=== PATIENT | female | born 1955 | race Caucasian/White ===

== ENCOUNTER → 2017-06-23 | Outpatient (CLI) | payer OTHER ==
[~2017-06-23] MED LIST: ALBU2.5V4 IH; ALPR-557 GT; ASCO1TAB17 PO; ASP325T PO; ASPI325T32 PO; CALC-657 PO; CALC625T PO; CELE200C PO; HYDR1TAB PO; IBUP200T48 PO; LINA290C PO; PNT40TEC PO; PREG300C PO; PRV20T PO; SCR1T1 PO; SERT25TA PO; TRAM50TA2 PO; VITAMINE D3 PO; ZLP10T PO; [UNRECOGNIZED DRUG - CODE] PO
--- NOTE | 2017-06-25 11:57 | Diagnostic Imaging Report ---
EXAM: Bilateral screening mammogram 2D views with tomosynthesis The current study was also evaluated with a Computer Aided Detection (CAD) system. INDICATION: Screening. No current complaints stated on the questionnaire. COMPARISON: 05/01/2016. FINDINGS: The breasts are composed of scattered fibroglandular densities. There are scattered benign-appearing calcifications. Allowing for technique and positional differences, no suspicious change is seen. IMPRESSION: No significant change. ACR BI-RADS Category 2: Benign findings. Result letter will be mailed to the patient. Note: At least 10% of breast cancer is not imaged by mammography. Dictated by: Dictated on workstation # [id number]
== END ==
LOC: RAD 10:00
PROVIDERS: ATTEND Nurse Practitioner Adult Health
DX: Z12.31 Encounter for screening mammogram for malignant neoplasm of breast (principal)
CPT/HCPCS: 77067

== ENCOUNTER → 2019-04-12 | Outpatient (CLI) | payer SELFPAY ==
--- NOTE | 2019-04-12 14:15 | Diagnostic Imaging Report ---
PROCEDURE: US Bilateral lower extremity arterial. TECHNIQUE: Multiple real-time grayscale images are obtained through both lower extremity arterial systems with color Doppler imaging and color Doppler spectral analysis. INDICATION: Raynaud's disease. CORRELATION STUDY: None FINDINGS: The major arteries of both legs are patent to the level of the ankles via the posterior tibial and dorsalis pedis arteries. There is some triphasic waveforms proximally in the common femoral artery, becoming especially biphasic through the remainder of the lower extremities. No significant velocity change or findings suggestive of a focal area of high-degree narrowing and/or stenosis. Visualized soft tissues appear unremarkable. IMPRESSION: 1. There is patency of the bilateral lower extremity arterial systems. No significant velocity change to suggest a focal area of stenosis. Dictated by: Dictated on workstation # [id number]
== END ==
LOC: RAD 12:01
PROVIDERS: ATTEND Nurse Practitioner Community Health
DX: I73.00 Raynaud's syndrome without gangrene (principal)
CPT/HCPCS: 93925

== ENCOUNTER → 2020-07-10 | Outpatient (CLI) | payer OTHER ==
--- NOTE | 2020-07-10 15:10 | Diagnostic Imaging Report ---
INDICATION: Routine screening. COMPARISON: 06/23/2017 and 05/01/2016. TECHNIQUE: 2D and 3D bilateral screening mammography was performed with CAD. FINDINGS: Scattered fibroglandular densities are identified bilaterally. There is a focal density in the lateral left breast on the CC view at posterior depth appearing more prominent than on prior exams. Additional views of this area are recommended. The right breast is unremarkable. There are benign calcifications. No malignant appearing microcalcifications are seen. The axillae are unremarkable. IMPRESSION: Left breast density. Additional views are recommended for further evaluation. ACR BI-RADS Category 0: Incomplete. (Needs additional imaging evaluation). Result letter will be mailed to the patient. Note: At least 10% of breast cancer is not imaged by mammography. Dictated by: Dictated on workstation # [id number]
== END ==
LOC: RAD 12:50
PROVIDERS: ATTEND Nurse Practitioner Family
DX: Z12.31 Encounter for screening mammogram for malignant neoplasm of breast (principal)
CPT/HCPCS: 77063; 77067

== ENCOUNTER → 2020-08-23 | Outpatient (CLI) | payer OTHER ==
--- NOTE | 2020-08-23 11:41 | Diagnostic Imaging Report ---
EXAM: Ultrasound, left breast, limited. INDICATION: Abnormal mammogram The screening mammogram performed on 07/10/2020 noted a small asymmetry in the lateral aspect of the left breast. The diagnostic mammogram performed prior to this study failed to show any sign of malignancy in this area. On this exam, there is no discrete solid or cystic mass identified in the lateral aspect of the left breast which would correspond to the finding of the mammogram. I suspect the mammographic finding was related to fibroglandular tissue alone. Even so, I would recommend that a short-term (6 month) follow-up mammogram of the left breast be obtained for continued evaluation. IMPRESSION: There is no evidence for malignancy. Recommendations as above. ACR BI-RADS Category 3: Probably benign findings. Result letter will be mailed to the patient. Note: At least 10% of breast cancer is not imaged by mammography. Dictated by: Dictated on workstation # [id number]
--- NOTE | 2020-08-23 17:09 | Diagnostic Imaging Report ---
Diagnostic left mammogram. Indication: Abnormal screening mammogram The screening mammogram performed on 07/10/2020 noted a focal asymmetry in the lateral aspect left breast at posterior depth. This is only seen on the craniocaudad view. The compression view of this area shows that the question is less conspicuous. This finding is not as striking on the rolled views and cannot be identified on the MLO view. I suspect this asymmetry is related to fibroglandular tissue. Even so, I would recommend ultrasound be performed for further study. Impression: There is no evidence for malignancy. Recommendations as above. ACR BI-RADS Category 0: Incomplete. (Needs additional imaging evaluation). Result letter will be mailed to the patient. Note: At least 10% of breast cancer is not imaged by mammography. Dictated by: Dictated on workstation # [id number]
== END ==
LOC: RAD 09:45
PROVIDERS: ATTEND Nurse Practitioner Family
DX: R92.8 Other abnormal and inconclusive findings on diagnostic imaging of breast (principal)
CPT/HCPCS: 76642; 77065; G0279

== ENCOUNTER 2022-11-06 22:42 | Emergency (ER) | payer SELFPAY ==
[~2022-11-06] VITALS: Ht 149.8 cm; Wt 54.4 kg
[2022-11-06 22:55] VITALS: BP 148/70
[2022-11-06] MEDS ORDERED: KETOROLAC 30 MG/ML VIAL IVP ONE (23:30)
[2022-11-06] MEDS ORDERED: ORPHENADRINE 60 MG/2 ML (NORFLEX) AMP (ED ONLY) IV ONE (23:30)
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
--- NOTE | 2022-11-07 06:55 | Diagnostic Imaging Report ---
INDICATION: Neck pain, left arm radiculopathy. TECHNIQUE: Multiple contiguous axial images were obtained through the cervical spine without the use of intravenous contrast. Sagittal and coronal reformations were then performed. Auto Exposure Controls were utilized during the CT exam to meet ALARA standards for radiation dose reduction. There is no prior CT cervical spine for comparison There was no evidence cervical spine fracture. There are diffuse degenerative changes in the cervical spine. There is mild anterolisthesis of C4 on C5 which is likely on a degenerative basis. There is diffuse facet degenerative change throughout all levels. There is disc space narrowing most prominent at C5-C6 and C6-C7 with osteophyte formation. There is bilateral neural femoral narrowing at C5-C6 and C6-C7 due to osteophyte formation. Visualized portions of the upper thoracic spine demonstrate some mild wedging of T1 and T3 which appears chronic. IMPRESSION: Chronic degenerative changes of the cervical spine as described above with no definite acute bone abnormality. MRI could provide further detail if clinically warranted. Dictated by: Dictated on workstation # [id number]
== END 2022-11-07 01:53 | disposition left against medical advice (07) ==
LOC: EDUNIT# 22:42 → ER 22:45
DX: U07.1 COVID-19 (principal); M54.2 Cervicalgia; M25.512 Pain in left shoulder; R05.9 Cough, unspecified; R51.9 Headache, unspecified; F17.210 Nicotine dependence, cigarettes, uncomplicated; Z28.310 Unvaccinated for COVID-19
CPT/HCPCS: 72125; 93041